=== PATIENT | female | born 1960 | race Caucasian/White ===

== ENCOUNTER → 2017-12-21 | Outpatient (CLI) | payer OTHER ==
[~2017-12-21] MED LIST: NAPR220C11 PO; NAPR220T66; OMEP-10 PO; ONDA8TAB6; OXYC-12 PO; OXYC1CAP; PERCOCET 5/325MG; PHEN100T26
--- NOTE | 2017-12-22 22:06 | Diagnostic Imaging Report ---
INDICATION: Routine screening. Comparison is made with prior study from 02/04/2013. TECHNIQUE: Bilateral 3D digital tomographic views were obtained with [employer], [employer] and reviewed on a [employer] workstation. In addition, CAD - computer aided detection was utilized. FINDINGS: Scattered fibroglandular densities are identified bilaterally. No discrete mass or malignant-appearing microcalcifications are seen. The axillae are unremarkable. IMPRESSION: No mammographic features suspicious for malignancy are identified. ACR BI-RADS Category 1: Negative. Result letter will be mailed to the patient. Note: At least 10% of breast cancer is not imaged by mammography. Dictated by: Dictated on workstation # [id number]
== END ==
LOC: RAD 14:40
PROVIDERS: ATTEND Family Medicine
DX: Z12.31 Encounter for screening mammogram for malignant neoplasm of breast (principal)
CPT/HCPCS: 77067

== ENCOUNTER → 2018-01-25 | Outpatient (REF) ==
--- NOTE | 2018-01-25 11:25 | Diagnostic Imaging Report ---
INDICATION: Knee pain. EXAMINATION: Three views were obtained. FINDINGS: The alignment is normal. There are mild three compartmental osteoarthritic changes. There is no fracture or dislocation. The soft tissues are unremarkable. IMPRESSION: Mild three compartmental osteoarthritic change, otherwise unremarkable. Dictated by: Dictated on workstation # [id number]
== END | disposition home or self-care (01) ==
LOC: OCC 11:06
PROVIDERS: ATTEND Family Medicine
CPT/HCPCS: 73562

== ENCOUNTER → 2019-12-26 | Outpatient (CLI) | payer OTHER ==
--- NOTE | 2019-12-26 15:49 | Diagnostic Imaging Report ---
MRI RT LOWER EXT JOINT W/O TECHNIQUE: Multiplanar, multisequence MR imaging of the right knee was performed without contrast. COMPARISON: Right knee radiographs from 01/25/2018. INDICATION: Right knee pain and swelling. FINDINGS: MENISCI Medial meniscus: Degenerative macerated tearing is present throughout the medial meniscus. The body of the medial meniscus is extruded into the medial gutter. Lateral meniscus: Minimal free edge tearing in the body of the lateral meniscus. LIGAMENTS ACL: Intact. PCL: Intact. MCL: Intact. LCL: The lateral collateral ligamentous complex is intact. EXTENSOR MECHANISM The extensor mechanism is intact. CARTILAGE Medial compartment: Diffuse full-thickness articular cartilage loss is present throughout the weightbearing aspect of the medial compartment. Underlying subchondral bone marrow edema is present in the medial femoral condyle and medial tibial plateau. Lateral compartment: The lateral compartment articular cartilage is preserved without high-grade chondromalacia. Patellofemoral compartment: Low-grade partial-thickness chondromalacia in the medial patellar facet involves less than 50% of the thickness. BONE No fracture, stress fracture or osteonecrosis. SOFT TISSUE Small knee joint effusion. Small Guevara's cyst. There is also small cystic ganglion arising from the posteromedial aspect of the capsule and extending along the superficial aspect of the distal semimembranosus tendon. IMPRESSION: 1. 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 2. There is associated degenerative macerated tearing of the medial meniscus. 3. Mild degenerative chondral thinning in the patellofemoral compartment. 4. Trace degenerative free edge tearing in the lateral meniscus. 5. Small Guevara's cyst and small cystic ganglion arising from the posteromedial aspect of the knee joint. Dictated by: Dictated on workstation # [id number]
== END ==
LOC: RAD 14:37
PROVIDERS: ATTEND Nurse Practitioner
DX: S60.212D Contusion of left wrist, subsequent encounter (principal); M25.532 Pain in left wrist; M67.832 Other specified disorders of synovium, left wrist; S80.01XD Contusion of right knee, subsequent encounter; M17.11 Unilateral primary osteoarthritis, right knee; M23.8X1 Other internal derangements of right knee; M71.21 Synovial cyst of popliteal space [Baker], right knee; M67.461 Ganglion, right knee
CPT/HCPCS: 73721

== ENCOUNTER → 2021-09-25 | Outpatient (CLI) | payer OTHER ==
--- NOTE | 2021-09-25 15:32 | Diagnostic Imaging Report ---
INDICATION: Cough, shortness of breath, Covid. EXAMINATION: PA and lateral chest. FINDINGS: The heart size and pulmonary vascularity are normal. The lungs are clear. There are no effusions or pneumothoraces. IMPRESSION: Negative chest. Dictated by: Dictated on workstation # [id number]
== END ==
LOC: RAD 14:56
PROVIDERS: ATTEND Family Medicine
DX: R05.9 Cough, unspecified (principal); R06.02 Shortness of breath; U09.9 Post COVID-19 condition, unspecified
CPT/HCPCS: 71046

== ENCOUNTER → 2021-10-15 | Outpatient (CLI) | payer OTHER ==
--- NOTE | 2021-10-15 16:00 | Diagnostic Imaging Report ---
INDICATION: Routine screening. COMPARISON: 12/21/2017 and 02/04/2013. TECHNIQUE: 2D and 3D bilateral screening mammography was performed with CAD. FINDINGS: Scattered fibroglandular densities are identified bilaterally. The parenchymal pattern is stable. No dominant mass or malignant-appearing microcalcifications are seen. The axillae are unremarkable. IMPRESSION: No mammographic features suspicious for malignancy are identified. ACR BI-RADS Category 1: Negative. Result letter will be mailed to the patient. Note: At least 10% of breast cancer is not imaged by mammography. Dictated by: Dictated on workstation # [id number]
== END ==
LOC: RAD 15:00
PROVIDERS: ATTEND Family Medicine
DX: Z12.31 Encounter for screening mammogram for malignant neoplasm of breast (principal)
CPT/HCPCS: 77063; 77067

== ENCOUNTER → 2022-07-07 | Outpatient (CLI) | payer OTHER ==
--- NOTE | 2022-07-07 19:42 | Diagnostic Imaging Report ---
INDICATION: SPRAIN OF OTHER MUSCLES, CERVICALGIA, PAIN IN THORACIC SPINE,. TECHNIQUE: AP, Lateral and Swimmers imaging of the thoracic spine CORRELATION STUDY: Chest radiograph 09/25/2021 FINDINGS: There is moderate anterior wedging and compression deformity at what appears to be T5 vertebral body. Age indeterminate but is new since prior chest radiograph of 9 month earlier. Slightly accentuated thoracic kyphosis. Remaining thoracic vertebral body heights overall generally stable. Mild diffuse thoracic spondylosis. IMPRESSION: Moderate compression deformity at approximately the T5 vertebral body. Age is indeterminate but is changed from study of 9 months earlier. Correlation for symptoms. If indicated, correlation with MRI and/or CT imaging would be recommended. Dictated by: Dictated on workstation # [id number]
--- NOTE | 2022-07-07 19:55 | Diagnostic Imaging Report ---
CLINICAL INDICATIONS: Patient with neck pain from falls. EXAM: X-ray of the cervical spine, 3 views. COMPARISON: None. FINDINGS: There is no acute cervical spine fracture. There is grade 1 anterolisthesis of C3 on C4 with no pars defect. There are cervical spine vertebral body spurs and facet arthropathy. There is no prevertebral soft tissue swelling. IMPRESSION: 1: There is no acute cervical spine fracture. 3: There is degenerative disease of the cervical spine including grade 1 anterolisthesis of C3 on C4. Dictated by: Dictated on workstation # [id number]
== END ==
LOC: RAD 14:32
PROVIDERS: ATTEND Nurse Practitioner Family
DX: M50.31 Other cervical disc degeneration, high cervical region (principal); M43.12 Spondylolisthesis, cervical region; S22.050A Wedge compression fracture of T5-T6 vertebra, initial encounter for closed fracture; S46.812D Strain of other muscles, fascia and tendons at shoulder and upper arm level, left arm, subsequent encounter; S93.491D Sprain of other ligament of right ankle, subsequent encounter; S63.592D Other specified sprain of left wrist, subsequent encounter; M25.561 Pain in right knee; S80.01XD Contusion of right knee, subsequent encounter; Z04.2 Encounter for examination and observation following work accident; G89.4 Chronic pain syndrome
CPT/HCPCS: 72040; 72072

== ENCOUNTER → 2023-06-30 | Outpatient (CLI) | payer MEDICARE, OTHER ==
--- NOTE | 2023-06-30 12:27 | Diagnostic Imaging Report ---
PROCEDURE: US carotid duplex, bilateral. TECHNIQUE: Multiple real-time grayscale images were obtained over the carotid arteries in various projections, bilaterally. Additional spectral analysis and color Doppler duplex images were also obtained. INDICATION: Left carotid bruit COMPARISON: None available FINDINGS: Right carotid circulation: The right common carotid artery is normal in caliber, and there is no significant stenosis. Peak systolic velocity in the right common carotid artery is 118 cm/sec. There is no atherosclerotic plaque or narrowing in the carotid bulb or proximal ICA. The peak systolic velocity in the proximal internal carotid artery is 100 cm/sec. Proximal aspect of the external carotid artery is patent with expected high resistance waveforms, and peak systolic velocity of 106 cm/sec. Left carotid circulation: The left common carotid artery is normal in caliber, and there is no significant stenosis. Peak systolic velocity in the left common carotid artery is 123 cm/sec. There is no atherosclerotic plaque or narrowing in the carotid bulb or proximal ICA. The peak systolic velocity in the proximal internal carotid artery is 99 cm/sec. Proximal aspect of the external carotid artery is patent with expected high resistance waveforms, and peak systolic velocity of 97 cm/sec. Vertebral arteries: Flow in the bilateral vertebral arteries is antegrade. IMPRESSION: 1. Normal proximal internal carotid arteries. 2. Patent vertebral arteries with antegrade flow. Parameters based on the consensus panel Evans-Scale and Doppler ultrasound criteria published June 2003, Radiology, Volume 229. DOPPLER (peak systolic velocity M/S Right Left CCA 1.18 1.23 ICA Proximal 0.69 0.99 ICA Mid 1.00 0.92 ICA Distal 0.81 0.99 RATIO 0.85 0.80 ECA 1.06 0.97 VERT 0.88 0.79 Dictated by: Dictated on workstation # [id number]
--- NOTE | 2023-06-30 12:30 | Diagnostic Imaging Report ---
INDICATION: Routine screening. Comparison is made with prior mammogram 10/15/2021 and 12/21/2017. 2-D and 3-D bilateral screening mammography was performed with CAD. The current study was also evaluated with a Computer Aided Detection (CAD) system. Scattered fibroglandular densities are identified bilaterally. No mass or malignant-appearing microcalcifications are identified. Axillae are unremarkable. IMPRESSION: BI-RADS Category 1 No mammographic features suspicious for malignancy are identified. ACR BI-RADS Category 1: Negative. Result letter will be mailed to the patient. Note: At least 10% of breast cancer is not imaged by mammography. Dictated by: Dictated on workstation # [id number]
== END ==
LOC: RAD 07:37
PROVIDERS: ATTEND Family Medicine
DX: Z12.31 Encounter for screening mammogram for malignant neoplasm of breast (principal); R09.89 Other specified symptoms and signs involving the circulatory and respiratory systems
CPT/HCPCS: 77063; 77067; 93880